=== PATIENT | male | born 1960 | race Caucasian/White ===

== ENCOUNTER 2022-08-24 11:51 | Emergency (ER) | payer OTHER ==
[~2022-08-24] VITALS: Ht 177.8 cm; Wt 91.8 kg
[2022-08-24 12:01] VITALS: BP 127/75
[2022-08-24 13:00] LABS: BASOPHILS # (AUTO) 0.1 X10'3 (0-0.2); BASOPHILS % (AUTO) 0.8 % (0-1); EOSINOPHILS # (AUTO) 0.5 X10'3 (0-0.9); EOSINOPHILS % (AUTO) 3.8 % (0-6); HEMATOCRIT 48.6 % (42.0-52.0); HEMOGLOBIN 15.9 g/dl (14.0-17.9); LYMPHOCYTES % (AUTO) 16.7 % (21-51); MEAN CORPUSCULAR HEMOGLOBIN 30.1 PG (27.0-31.0); MEAN CORPUSCULAR HGB CONC 32.7 g/dL (33.0-36.5); MEAN CORPUSCULAR VOLUME 91.9 FL (78-98); MEAN PLATELET VOLUME 7.9 FL (7.4-10.4); MONOCYTES % (AUTO) 8.6 % (2-12); NEUTROPHILS # (AUTO) 8.6 X10'3 (1.8-7.7); NEUTROPHILS % (AUTO) 70.1 % (42-75); PLATELET COUNT 194 X10'3 (140-440); RED BLOOD COUNT 5.29 X10'6 (4.70-6.10); RED CELL DISTRIBUTION WIDTH 14.6 % (11.5-14.5); WHITE BLOOD COUNT 12.2 X10'3 (4.5-11.0)
[2022-08-24 13:28] LABS: ALANINE AMINOTRANSFERASE 37 U/L (12-78); ALBUMIN 3.3 G/DL (3.4-5.0); ALBUMIN/GLOBULIN RATIO 0.9 (1.1-1.5); ALKALINE PHOSPHATASE 84 IU/L (46-116); ASPARTATE AMINO TRANSFERASE 26 U/L (10-37); BILIRUBIN,TOTAL 0.4 MG/DL (0.1-1.0); BLOOD UREA NITROGEN 24 MG/DL (7-18); BUN/CREATININE RATIO 21.6 (5.4-32.0); CALCIUM 8.7 MG/DL (8.5-10.1); CREATININE 1.11 MG/DL (0.60-1.10); GLUCOSE 102 MG/DL (70-104); POTASSIUM 4.3 MMOL/L (3.5-5.1); SODIUM 138 MMOL/L (135-145); TOTAL CARBON DIOXIDE 25.5 MMOL/L (24-32); TOTAL PROTEIN 6.9 G/DL (6.4-8.2); eGFR 67 ML/MIN
[2022-08-24 13:29] LABS: CLARITY,URINE CLOUDY (Clear); COLOR,URINE AMBER (Yellow); GLUCOSE, URINE NEGATIVE (Neg); KETONES,URINE TRACE mg/dl (Neg); LEUKOCYTE ESTERASE ,URINE NEGATIVE (Neg); NITRITES, URINE POSITIVE (Neg); OCCULT BLOOD,URINE LARGE (Neg); PROTEIN,URINE 100 mg/dl (Neg); UROBILINOGEN,URINE 0.2 E.U/dL (0.2-1.0)
[2022-08-24 13:30] LABS: UA COLLECTION TYPE CLN CATCH MIDSTREAM
[2022-08-24 13:37] LABS: ANION GAP 8 (8-16); CHLORIDE 105 MMOL/L (99-107)
[2022-08-24 13:41] LABS: AMORPHOUS URATES 3+
[2022-08-24 13:42] LABS: BACTERIA,URINE 1+ /HPF (Neg); MUCUS STRANDS MODERATE /LPF (Neg); RBC,URINE TNTC /HPF (0-2); SQUAMOUS EPITHELIAL CELL,UR FEW /LPF (FEW)
== END 2022-08-24 14:24 | disposition home or self-care (01) ==
LOC: ER 11:53
DX: R58 Hemorrhage, not elsewhere classified (principal); D68.9 Coagulation defect, unspecified; R31.0 Gross hematuria; R11.0 Nausea; I48.91 Unspecified atrial fibrillation; E78.00 Pure hypercholesterolemia, unspecified; I10 Essential (primary) hypertension; Z98.890 Other specified postprocedural states; Z72.89 Other problems related to lifestyle; Z88.5 Allergy status to narcotic agent
CPT/HCPCS: 36415; 80053; 81001; 85025; 85610; 87088; 99283

== ENCOUNTER 2025-04-11 10:11 | Inpatient (IN) | payer OTHER ==
[~2025-04-11] VITALS: Ht 177.8 cm; Wt 101.8 kg
[2025-04-11 10:39] LABS: MEAN PLATELET VOLUME 8.1 FL (7.4-10.4); RED CELL DISTRIBUTION WIDTH 14.9 % (11.5-14.5)
--- NOTE | 2025-04-11 10:43 | ELECTROCARDIOGRAPH REPORT ---
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 Cheng Marks Measurements Intervals [place] Rate: 79 P: 0 NV: 0 QRS: 51 QRSD: 98 T: 80 QT: 385 QTc: 442 Interpretive Statements Atrial fibrillation Probable LVH with secondary repol abnrm Electronically Signed On 04-18-2025 18:49:[address] Cheng Marks Please click the below link to view image of tracing.
[2025-04-11 10:50] LABS: CREATININE 1.40 MG/DL (0.60-1.10); TOTAL CARBON DIOXIDE 26.2 MMOL/L (24-32); eCRCL 55 ML/MIN; eGFR 51 ML/MIN
[2025-04-11 10:52] LABS: APTT 25 SECONDS (22-32); INR 1.0 INR
--- NOTE | 2025-04-11 11:12 | RADIOLOGY REPORT ---
CLINICAL INFORMATION: 64 years old, Male; Stroke Alert. TECHNIQUE: Axial imaging was obtained through the brain without contrast. Coronal and sagittal reformatted images were obtained, reviewed, and stored. Images were reviewed in brain and bone windows. All CT scans at this medical facility are performed using dose modulation techniques as appropriate to a performed exam including the following: Automated exposure control was utilized; adjustment of the MA and/or KV according to patient size; and use of iterative reconstruction technique. CTDIvol = 68.96 mGy DLP = 1297.82 mGy-cm COMPARISON: None FINDINGS: There is no acute intracranial hemorrhage. No mass effect or midline shift. There is ventriculomegaly, to a greater extent involving the lateral ventricles, disproportionate to the degree of cerebral volume loss. Possible normal pressure hydrocephalus in the appropriate clinical setting. Basal cisterns are patent. The calvarium is unremarkable. Paranasal sinuses and mastoid air cells are clear. IMPRESSION: 1. No CT evidence of acute intracranial abnormality. 2. Ventriculomegaly, disproportionate to the degree of cerebral volume loss, possible normal pressure hydrocephalus in the appropriate clinical setting. Critical findings Critical Result: Stroke Alert Findings discussed with Dr. Camp, at 04/11/2025 01:09 PM CDT, and acknowledged receipt and understanding of the findings. ..
--- NOTE | 2025-04-11 11:12 | RADIOLOGY REPORT ---
CHEST RADIOGRAPH Indication: Stroke [id number] Technique: Single frontal view of the chest was obtained COMPARISON: None FINDINGS: Lines and Tubes: Median sternotomy Lungs: Clear Pleura: No effusion. No pneumothorax. Cardiomediastinal contours: Cardiac valve replacement Bones: Unremarkable IMPRESSION: No acute disease.
--- NOTE | 2025-04-11 11:56 | Physician Documentation ---
History of Present Illness ~ Chief Complaint: Stroke Alert Stated Complaint: CONFUSION Time Seen by MD: 10:35 Mode of Arrival: POV HPI 64 year old male was watching TV last night and experienced some neurologic symptoms where he was suddenly unable to walk, may have fallen down, and saw visual disturbances on the screen. His symptoms resolved (timeline is unclear, he is a poor historian). He feels fine now, went to work and spoke with his complaint manager, and then presented to our ER. He is ambulatory, denies pain, fevers, N/V/D, shortness of breath, headache, and visual disturbances. Medication Reconciliation Allergies: Coded Allergies: codeine (Verified Allergy, Unknown, 04/11/25) Past Medical History Past Medical History: Atrial Fibrillation, High Cholesterol, Hypertension Past Surgical History: heart valve surgery Alcohol Use: Occasionally Drug Use: none Lives In: Home Occupation: employed Review of Systems All Other Systems at this time: Reviewed and Negative Physical Exam Vital Signs: Temperature: 98.6, Source: Oral, Heart Rate: 95, Respiratory Rate: 16, BP: 131/91, Pulse Oximetry: 98, Weight: 101.800 Oxygen Flow Rate: 0 General Appearance HEENT: PERRL, moist oral mucosa, EOMI Pulmonary: No respiratory distress CTAB Cardiac: RRR, no murmur, rub or gallop MSK: no deformity Skin: w/d/i, no rash Neuro: alert, nonfocal Psych: normal affect Progress Results/Orders Results/Orders Orders - CARMINE CHANG MD Monitor (04/11/25 10:28) 2 Large Bore Ivs (04/11/25 10:28) Chest,Single View (04/11/25 11:00) Accucheck (04/11/25 10:) Ct Stroke Alert (04/11/25:) [place] Prov.Neuro Consult (04/11/25 10:) Page Hospitalist (04/11/25 12:07) Completed Orders - CARMINE CHANG MD Cbc/Diff (04/11/25:) Electrocardiogram (04/11/25:) Chest,Single View (04/11/25 11:00) Ct Stroke Alert (04/11/25:) BMP (04/11/25:) PTT (9/10/25 10:28) Pt Inr (04/11/25 10:28) Urinalysis, Cult If Indicated (04/11/25 11:38) Ethanol (04/11/25 10:32) Vital Signs 04/11/25 04/11/25 04/11/25 10:16 10:20 11:41 Temp 97.4 98.6 Pulse 79 95 Resp 18 16 16 B/P (MAP) 126/82 131/91 (104) Pulse Ox 97 98 O2 Flow Rate 0 Laboratory Tests Test 04/11/25 10:32 04/11/25 12:52 White Blood Count 9.7 Red Blood Count 4.84 Hemoglobin 14.6 Hematocrit 44.4 Mean Corpuscular Volume 91.8 Mean Corpuscular Hemoglobin 30.3 Mean Corpuscular Hemoglobin Concent 33.0 Red Cell Distribution Width 14.9 H Platelet Count 170 Mean Platelet Volume 8.1 Neutrophils (%) (Auto) 66.3 Lymphocytes (%) (Auto) 20.7 L Monocytes (%) (Auto) 8.4 Eosinophils (%) (Auto) 3.6 Basophils (%) (Auto) 1.0 Neutrophils # (Auto) 6.4 Lymphocytes # (Auto) 2.0 Monocytes # (Auto) 0.8 Eosinophils # (Auto) 0.3 Basophils # (Auto) 0.1 CBC Comment Prothrombin Time 10.1 INR International Normalized Ratio 1.0 Activated Partial Thromboplast Time 25 Coagulation Comments Sodium Level 137 Potassium Level 4.6 Chloride Level 106 Carbon Dioxide Level 26.2 Anion Gap 5 L Blood Urea Nitrogen 32 H Creatinine 1.40 H Estimated GFR/1.73 m2 51 BUN/Creatinine Ratio 22.9 H Glucose Level 100 Calcium Level 8.7 Albumin 3.5 Chemistry Comments Ethyl Alcohol Level < 10 Urine Specimen Description Cln catch midstream Urine Color Yellow Urine Clarity Clear Urine pH 5.5 Urine Specific Cleves 1.025 Urine Protein Negative Urine Glucose (UA) Negative Urine Ketones Negative Urine Occult Blood Negative Urine Nitrite Negative Urine Bilirubin Negative Urine Urobilinogen 0.2 Urine Leukocyte Esterase Negative Urine Culture Indicated Not ind Volume Urine Centrifuged 10 ml Urine Comment EKG/XRAY/CT/US/VASC/MRI EKG : Indication: stroke/TIA EKG Rate: 79 EKG: a fib EKG Blocks: none Additional Comment my interpretation: no STEMI, atrial fibrillation, rate of 79/min Chest X-Ray : Interpreted By: self Views: 1 VIEW Indication: weakness Lungs: normal Mediastinum: normal Ribs/Bones: normal Abdomen: normal Impression: no acute disease CT : Interpreted By: self CT: head Impression no mass, shift, or intracranial hemorrhage Medical Decision Making Findings 64 year old male with concern for CVA/TIA given symptoms. However he is asymptomatic today and completely neurologically intact. Workup was entirely negative including CT head, labs. On reevaluation I recommended that the patient be admitted for further workup including MRI, echocardiogram, and inpatient monitoring, but he adamantly refused despite a thorough discussion of the risks of leaving. Return precautions discussed. Differential Dx:Considerations: Include: CVA, DKA, Electrolyte imbalance, Encephalopathy, Hypoglycemia, Mass lesion, Subarachnoid Hemorrhage, TIA Departure Disposition: LEFT AGAINST MEDICAL ADVICE Impression: Primary Impression: Weakness Condition: Stable Discharge Instructions: Stroke Prevention, [id number] Referrals: NO PRIMARY CARE PROVIDER (PCP) Education Educated: Patient, Other Educated regarding: diagnosis, treatment, prognosis, need for follow up Signature Scribe Signature: . Attestation: . CARMINE CHANG MD Apr 11, 2025 11:56
[2025-04-11 13:17] LABS: LEUKOCYTE ESTERASE ,URINE NEGATIVE (Neg); NITRITES, URINE NEGATIVE (Neg); OCCULT BLOOD,URINE NEGATIVE (Neg)
[2025-04-11 13:24] LABS: UA COLLECTION TYPE CLN CATCH MIDSTREAM
[2025-04-11] MEDS ORDERED: magnesium hydroxide 30ml (MOM) UD suspension PO PRN (13:50)
[2025-04-11] MEDS ORDERED: magnesium sulf-water 2g/50mL 50 ML IV PRN (13:50)
[2025-04-11] MEDS ORDERED: potassium Cl 40MEQ/1/2NS 520ml 520 ML IV PRN (13:50)
[2025-04-11] MEDS ORDERED: magnesium sulf-water 4G/100mL 100 ML IV PRN (13:50)
[2025-04-11] MEDS ORDERED: potassium Cl 20 mEq SR tablet PO PRN ×2 (13:50)
[2025-04-11] MEDS ORDERED: magnesium Cl slow-release 64mg tablet PO PRN (13:50)
[2025-04-11] MEDS ORDERED: bisacodyl 10mg suppository rectal RC PRN (13:50)
[2025-04-11] MEDS ORDERED: ondansetron/PF 4mg/2ml inj IV PRN (13:50)
[2025-04-11 14:20] LABS: ETHANOL < 10 MG/DL (<10)
--- NOTE | 2025-04-11 19:10 | CARDIOLOGY REPORT ---
APPROVED REPORT EXAM: Comprehensive 2D, Doppler, and color-flow Echocardiogram. Patient Location: ER3 Heart Rate: 85 bpm Rhythm: ATRIAL FIBRILLATION Indications Arrhythmia ATRIAL FIBRILLATION HYPERTENSION UNK SIZED / MODEL BIOPROSTHETIC MITRALVALVE REPLACEMENT Sorter Packer is Antonio Hawley MD No previous echo 2D Dimensions RVDd 5.6 cm LA Diam 6.5 cm IVSd 1.4 (0.7-1.1cm) LVDd 3.9 cm PWd 1.4 (0.7-1.1cm) IVSs 1.8 (0.8-1.2cm) LVDs 2.8 (2.5-4.0cm) Aortic Root(2D) 4.0 cm PWs 1.8 (0.8-1.2cm) LVOT Diameter 2.44 (1.8-2.4cm) LVEF(%) 56.7 (>50%) Ao Asc Diam. 3.62 cm IVC 15.71 mm FS (%) 29.2 % SV 37.3 ml CO 3.7 L/min Aortic Valve AoV Peak Rosales. 164.1 cm/s AoV VTI 28.0 cm AO Peak GR. 10.8 mmHg AO Mean GR. 6 mmHg LVOT VTI 20.52 cm LVOT Peak Rosales. 111.6 cm/s SHANTEL(VTI)/BSA 3.44 cm2/m2 SHANTEL (VTI) 3.44 cm2 Mitral Valve MV Peak Gr. 26 mmHg MV Mean Gr. 13 mmHg MV VMax 254.4 cm/s MV VMean 166.3 cm/s MVA VTI 1.39 cm2 MV VTI 69.2 cm Tricuspid Valve TR P. Velocity 357 cm/s RAP ESTIMATE 10 mmHg TR Peak Gr. 51 mmHg RVSP 61 mmHg LEFT VENTRICLE LV is normal in size with moderate concentric hypertrophy. Overall systolic function appears normal. LVEF is 65%. RIGHT VENTRICLE RV appears moderately dilated with normal contractility. RVSP is estimated at 61 mmHG. ATRIA Left atrium is severely dilated. AORTIC VALVE Trileaflet AV appears sclerotic without stenosis. No insufficiency. MITRAL VALVE Bioprosthetic MV replacement appears well seated but canted towards the septum. Peak/mean gradient of 26/13 mmHG and a peak velocity of 2.54 m/s. Trace mitral regurgitation. TRICUSPID VALVE The tricuspid valve is normal in structure. Trace tricuspid regurgitation. PULMONIC VALVE The pulmonary valve is normal in structure. Trace pulmonic regurgitation. GREAT VESSELS Aortic root is dilated. The ascending aorta is measured at 3.6 cm. The IVC is normal in size and collapses >50% with inspiration. PERICARDIUM There is no pericardial effusion. Other Information Study Quality: Adequate Conclusion LV is normal in size with moderate concentric hypertrophy. Overall systolic function appears normal. LVEF is 65%. RV appears moderately dilated with normal contractility. RVSP is estimated at 61 mmHG. Left atrium is severely dilated. Trileaflet AV appears sclerotic without stenosis. No insufficiency. Bioprosthetic MV replacement appears well seated but canted towards the septum. Peak/mean gradient of 26/13 mmHG and a peak velocity of 2.54 m/s. Trace mitral regurgitation. The tricuspid valve is normal in structure. Trace tricuspid regurgitation. The pulmonary valve is normal in structure. Trace pulmonic regurgitation. Aortic root is dilated. The ascending aorta is measured at 3.6 cm. There is no pericardial effusion.
[2025-04-11] MEDS: heparin, porcine 5000 units/ml vial SQ SCH (20:00)
[2025-04-11 20:30] VITALS: BP 138/77; PULSE 54; RESP 16; TEMP 97.8; O2SAT 98
--- NOTE | 2025-04-11 20:39 | HISTORY AND PHYSICAL ---
History & Physical Providers to CC ~ History of Present Illness Reason for Admit\Complaint: Stroke-like symptoms History of Present Illness Patient is 64-year-old male who does not have any primary care physician at this point of time but follows with Dr. Annalisa Hawley and see physician optometry assistant in his office. Patient has history of old stroke but he does not have any residual deficit due to his old stroke currently. As per patient he drinks alcohol mixed drink whiskey 16 oz daily with soda, very recently use cannabis also. He denies smoking. Patient is unable to recall very clearly how many medication she takes but he feels he takes one aspirin and blood pressure medication. As per patient he was watching TV around 8:00 p.m. unable to see images in TV very well and then he went to the restroom in unable to walk much, does not feel that he fell down . today he feels that his symptoms are resolved and denied any other concerns today. Patient has chronic atrial fibrillation unable to recall if he is taking any medication for rate control or on any other blood thinner besides aspirin. Patient denies any weakness over his extremity denies any speech abnormality vision abnormality or any other neurological symptoms when I evaluated him. As per ER physician He wanted to leave against medical advice but somehow ready to get admitted for overnight observation for stroke-like symptoms. He clearly mentioned to me that he can not get MRI head done because he feels very claustrophobic and even hesitant to take medications to get MRI head Allergies: Coded Allergies: codeine (Verified Allergy, Unknown, 04/11/25) Past Medical History Past Medical History Atrial Fibrillation, High Cholesterol, Hypertension Past Surgical History Surgical History Comment Mitral heart valve surgery Past Social History Social History Comment As per patient he drinks alcohol mixed drink whiskey 16 oz daily with soda, very recently use cannabis also. He denies smoking. He work in [employer] Review of system as mentioned above in HPI rest of the review of system unremarkable Exam Vitals: Vital Signs Date Time Temp Pulse Resp B/P (MAP) Pulse Ox O2 Delivery O2 Flow Rate FiO2 04/11/25 19:41 97.8 93 18 119/79 (92) 97 0 General: General-patient not in any acute distress, alert awake oriented, age- appropriate, looks comfortable HEENT-atraumatic normocephalic, neck supple without elevated JVD, no thyromegaly or carotid bruit. No lymphadenopathy bilaterally. Eyes-no icterus or pallor seen in eyes Chest-clear to auscultation bilaterally, breathing nonlabored no tachypnea, no wheezing, no crepitation, no crackles. Heart-S1-S2 normal, regular heart rate no murmur Abdomen bowel sounds positive on auscultation, soft nondistended nontender no guarding, no rigidity Skin no active skin rash Neurology-grossly intact, nonfocal alert awake oriented Extremity- no pedal edema able to move all 4 extremities, ambulating. No focal neurological deficit no arm drift no drooping of angle of mouth no weakness over lower extremity no speech abnormality no vision abnormality. Psychiatry - patient is not confused or agitated cooperated during physical examination Diagnostic Data Last Recorded Lab Results: 04/11/25 1032 04/11/25 1032 Diagnostic Data: Laboratory Tests Test 04/11/25 10:32 Prothrombin Time 10.1 SECONDS (9.0-12.0) INR International Normalized Ratio 1.0 INR Activated Partial Thromboplast Time 25 SECONDS (22-32) Coagulation Comments Advance Care Planning Advanced Care plannin - 30 Minutes Additional Plan Patient is 64-year-old male who does not have any primary care physician at this point of time but follows with Dr. Annalisa Hawley and see physician optometry assistant in his office. Patient has history of old stroke but he does not have any residual deficit due to his old stroke currently. Patient is admitted today for stroke- like symptoms, possible TIA or likely due to alcohol use. Further workup ordered include carotid Doppler studies echocardiogram we will continue to monitor neuro check and vitals. Patient is started on alcohol withdrawal protocol due to his current use of alcohol. Patient is strongly advised to stop alcohol and cannabis and risks explained. Detailed counseling done regarding atrial fibrillation in patient is encouraged to talk to his sustainable agriculture specialist regarding rate control medication and anticoagulation.. As per ER physician He wanted to leave against medical advice but somehow ready to get admitted for overnight observation for stroke-like symptoms. He clearly mentioned to me that he can not get MRI head done because he feels very claustrophobic and even hesitant to take medications to get MRI head We will continue to monitor patient's labs and vitals closely . Needs physical therapy evaluation before discharge . Code status discussed with the patient patient wishes full code. Time spent in discussing code status 16 minutes. We will do home medication reconciliation once updated in electronic by nursing staff or pharmacist. Further management depending on response to treatment and results of diagnostic workup. I will continue to follow patient in a.m. Date of Service: Apr 11, 2025 Billing Provider: GISELE CLANCY MD Common Visit Codes: 41279-BEGTRIC INP/OBS CARE (HIGH) Secondary Visit Codes: 90480-ECKOXMGN CARE PLAN 30 MINUTES GISELE CLANCY MD Apr 11, 2025 20:39
[2025-04-11] MEDS ORDERED: ASPI-611 PO (22:22)
--- NOTE | 2025-04-11 23:59 | [facility] CONSULT REPORT ---
[facility] Procedure Note [facility] Procedure Note Consult [facility] Note # Demographics Consult Type: General Neurology Patient Location: Emergency Room First Name: Linda Last Name: Date of : 1960 Age: 64 Gender: Male Facility: [facility] Time of Initial Page (): 04/11/2025 19:35 First Contact with Site (): 04/11/2025 19:35 # HPI History: 64y with hx of HTN who presented after this morning he started having blurry vision then tried to go to his room and had difficulty walking because he was unsteady. Symptoms have resolved, feels back to baseline # Scores Time of exam and NIHSS (): 04/11/2025 20:09 Level of Consciousness 1a: [0] = Alert; keenly responsive LOC Questions 1b: [0] = Answers both questions correctly LOC Commands 1c: [0] = Performs both tasks correctly Best Gaze 2: [0] = Normal Visual 3: [0] = No visual loss Facial Palsy 4: [0] = Normal symmetrical movements Motor Arm Left 5a: [0] = No drift Motor Arm Right 5b: [0] = No drift Motor Leg Left 6a: [0] = No drift Motor Leg Right 6b: [0] = No drift Limb Ataxia 7: [0] = Absent Sensory 8: [0] = Normal Best Language 9: [0] = No aphasia Dysarthria 10: [0] = Normal Extinction and Inattention 11: [0] = No abnormality NIHSS Total: 0 # Data Head CT: - no bleed - per radiologist read # Assessment Impression: - Vertigo Differential Diagnosis: - Ischemic Stroke (Acute) - Transient Ischemic Attack - Vertigo - Stroke Mimic # Plan Blood Pressure Management: - nicardipine - labetalol Target Blood Pressure: - SBP < 220 - DBP < 120 - Normotension Imaging - CTA head and neck - Patient states he will be unable to tolerate MRI due to claustrophobia, if this is the case would recommend repeat CT head about 24 hours from previous Labs: - hemoglobin A1c - lipid panel - TSH Diagnostic Test: - echo without bubble study Therapy/Evaluation: - PT/OT evaluation Medication: - aspirin 81 mg daily - start statin with goal of LDL < 70 DVT Prophylaxis: - SCD - chemical DVT prophylaxis Other: - If patient has any neurological deterioration please call me back immediately - telemetry monitoring - will need event monitor or loop recorder as outpatient if atrial fibrillation not found as inpatient - I have discussed my recommendations with the referring provider # Logistics Attestation of consult completion: The patient is located at: [facility]. Facility staff participated in the visit. I performed this t elemedicine visit from my offsite office utilizing interactive 2 way audio and visual telecommunication technology at the request of the onsite emergency room provider. Consent: Verbal consent was obtained from the patient and/or family for this encounter. Total time spent in telemedicine encounter: I spent 18 minutes reviewing clinical data and/or imaging, obtaining history, examining the patient, communicating with the onsite care team, and in preparation of this report. # Demographics First Name: Linda Last Name: Ish Facility: [facility] Electronically signed at 04/11/2025 20:46 ([place] Time) by Jing Sagastume DO Neuro Consult Order placed for: Yes JING SAGASTUME DO Apr 11, 2025 23:59
[2025-04-12] VITALS: BP 135/82; PULSE 65
[2025-04-12 04:00] VITALS: BP 125/85; PULSE 83
[2025-04-12 05:00] VITALS: BP 125/85; PULSE 83; RESP 18; TEMP 97.2; O2SAT 92
[2025-04-12 07:59] LABS: MEAN PLATELET VOLUME 8.1 FL (7.4-10.4); RED CELL DISTRIBUTION WIDTH 14.9 % (11.5-14.5)
[2025-04-12 08:21] LABS: CHOL/HDL RATIO 4.0 (0.00-4.99); CREATININE 1.20 MG/DL (0.60-1.10); LDL CHOLESTEROL 122 MG/DL (50-100); TOTAL CARBON DIOXIDE 26.2 MMOL/L (24-32); eCRCL 64 ML/MIN; eGFR 61 ML/MIN
[2025-04-12] MEDS: aspirin 81mg, enteric-coated 1 TAB TABLET.DR PO SCH (09:04)
[2025-04-12] MEDS: multivitamins, therapeutics tablet PO SCH (09:04)
[2025-04-12 10:00] VITALS: BP 115/77; PULSE 54; RESP 16; TEMP 98.5; O2SAT 98
[2025-04-12] MEDS ORDERED: CARV3.12 PO (10:43)
--- NOTE | 2025-04-12 12:29 | RADIOLOGY REPORT ---
CLINICAL INFORMATION: 64 years old, Male; STROKE LIKE SYMPTOMS. TECHNIQUE: Axial imaging was obtained through the brain without contrast. Coronal and sagittal reformatted images were obtained, reviewed, and stored. Images were reviewed in brain and bone windows. All CT scans at this medical facility are performed using dose modulation techniques as appropriate to a performed exam including the following: Automated exposure control was utilized; adjustment of the MA and/or KV according to patient size; and use of iterative reconstruction technique. CTDIvol = 70.09 mGy DLP = 1284.03 mGy-cm COMPARISON: CT CT STROKE ALERT on DOS: 04/11/25 FINDINGS: There is no acute intracranial hemorrhage. No mass effect or midline shift. Unchanged ventriculomegaly. Basal cisterns are patent. Probable physiologic calcification or vascular calcification along the falx cerebri. The calvarium is unremarkable. Paranasal sinuses and mastoid air cells are clear. IMPRESSION: 1. No CT evidence of acute intracranial abnormality. If clinically indicated, MRI could be considered to further evaluate. 2. Unchanged ventriculomegaly. Normal pressure hydrocephalus can not be excluded in the appropriate clinical setting. Correlate with clinical findings.
--- NOTE | 2025-04-12 12:30 | VASCULAR REPORT ---
[facility] Vascular Department [facility] [address] [place] [address] [email or web address] VASCULAR Name : KERI CALIX Date : 04/12/2025 Accession# : [id number] Birthdate : 1960 Sex : M Buzzle Buffer : Charles Monge RVT Age : [address]Y [address] : ASTON JAQUEZ Preliminary Report The above named patient was referred for a NON-INVASIVE CEREBROVASCULAR EVALUATION. The evaluation includes grayscale imaging, color flow Doppler and spectral analysis of the bilateral carotid and vertebral arteries. Patient IN-PATIENT L tatihnBilateral Indications Confusion Doppler Spectral Velocity Analysis Right Left pCCA 114/22 cm/s pCCA 103/23 cm/s dCCA 52/18 cm/s dCCA 48/19 cm/s ECA 74/ cm/s ECA 81/ cm/s pICA 40/15 cm/s pICA 57/18 cm/s Alejandro 48/19 cm/s Alejandro 60/15 cm/s dICA 79/25 cm/s dICA 75/29 cm/s Vert 36/13 cm/s Vert. 51/18 cm/s Subcl. 171/ cm/s Subcl. 128/ cm/s ICA/CCA 1.52 ICA/CCA 1.56 Temporal Artery Analysis Right Left Distal 56.00/cm/s Distal IMPRESSION: No sonographic evidence of stenosis or occlusion in bilateral carotid arteries. Bilateral common carotid arteries showed less than 50% stenosis. Bilateral external carotid arteries showed less than 50% stenosis. Bilateral internal carotid arteries showed less than 50% stenosis. Antegrade flow noted in bilateral vertebral arteries. Multiphasic flow noted in bilateral subclavian arteries.
--- NOTE | 2025-04-12 20:09 | DISCHARGE SUMMARY ---
Discharge Summary Providers to ~ Discharge Summary Admission Diagnosis: stroke like symptoms , Afib rate controlled Hospital Course DATE OF ADMISSION: April 11, 2025 DATE OF DISCHARGE:April 12, 2025 CBC testing done on April 12, 2025 WBC 8.2 hemoglobin 14.9 hematocrit 44.6 platelet count 150. Serum chemistry done on April 12, 2020 fives creatinine 1.20 GFR 61 hemoglobin A1c 6.3 normal liver enzymes lipid panel showing triglyceride 105 total cholesterol 203 LDL 122. Alcohol level less than 10, urine testing negative VL CAROTID-IMPRESSION: No sonographic evidence of stenosis or occlusion in bilateral carotid arteries. Bilateral common carotid arteries showed less than 50% stenosis. Bilateral external carotid arteries showed less than 50% stenosis. Bilateral internal carotid arteries showed less than 50% stenosis. Antegrade flow noted in bilateral vertebral arteries. Multiphasic flow noted in bilateral subclavian arteries. CT HEAD-IMPRESSION: 1. No CT evidence of acute intracranial abnormality. If clinically indicated, MRI could be considered to further evaluate. 2. Unchanged ventriculomegaly. Normal pressure hydrocephalus can not be excluded in the appropriate clinical setting. Correlate with clinical findings. ECHOCARDIOGRAMConclusion LV is normal in size with moderate concentric hypertrophy. Overall systolic function appears normal. LVEF is 65%. RV appears moderately dilated with normal contractility. RVSP is estimated at 61 mmHG. Left atrium is severely dilated. Trileaflet AV appears sclerotic without stenosis. No insufficiency. Bioprosthetic MV replacement appears well seated but canted towards the septum. Peak/mean gradient of 26/13 mmHG and a peak velocity of 2.54 m/s. Trace mitral regurgitation. The tricuspid valve is normal in structure. Trace tricuspid regurgitation. The pulmonary valve is normal in structure. Trace pulmonic regurgitation. Aortic root is dilated. The ascending aorta is measured at 3.6 cm. There is no pericardial effusion. CHEST,SINGLE VIEWIMPRESSION: No acute disease. CT STROKE ALERT-IMPRESSION: 1. No CT evidence of acute intracranial abnormality. 2. Ventriculomegaly, disproportionate to the degree of cerebral volume loss, possible normal pressure hydrocephalus in the appropriate clinical setting. Discharge Diagnosis\Comment: Old CVA, alcohol abuse, atrial fibrillation rate controlled Operations\Procedures: None Consultants: Dr. Jing Roth Complications: None Condition on DC: Stable New Medications: Carvedilol (Coreg) 3.125 Mg Tablet 1 TAB PO Q12H for 30 Days, #60 TAB Continued Medications: Aspirin (Aspir 81) 81 Mg Tablet. 1 TAB PO DAILY, TAB Discharge Summary: Patient is 64-year-old male who does not have any primary care physician at this point of time but follows with Dr. Annalisa Hawley and see physician assistant professor of life sciences in his office. Patient has history of old stroke but he does not have any residual deficit due to his old stroke currently. As per patient he drinks alcohol mixed drink whiskey 16 oz daily with soda, very recently use cannabis also. He denies smoking. Patient is unable to recall very clearly how many medication she takes but he feels he takes one aspirin and blood pressure medication. As per patient he was watching TV around 8:00 p.m. unable to see images in TV very well and then he went to the restroom in unable to walk much, does not feel that he fell down . today he feels that his symptoms are resolved and denied any other concerns today. Patient has chronic atrial fibrillation unable to recall if he is taking any medication for rate control or on any other blood thinner besides aspirin. Patient denies any weakness over his extremity denies any speech abnormality vision abnormality or any other neurological symptoms when I evaluated him. As per ER physician He wanted to leave against medical advice but somehow ready to get admitted for overnight observation for stroke-like symptoms. He clearly mentioned to me that he can not get MRI head done because he feels very claustrophobic and even hesitant to take medications to get MRI head Patient is admitted today for stroke-like symptoms, possible TIA or likely due to alcohol use. Further workup ordered include carotid Doppler studies echocardiogram in results of diagnostic workup mentioned above. we continued to monitor neuro check and vitals. Patient is started on alcohol withdrawal protocol due to his current use of alcohol. Patient is strongly advised to stop alcohol and cannabis and risks explained. Detailed counseling done regarding atrial fibrillation in patient is encouraged to talk to his technical sales support specialist regarding rate control medication and anticoagulation.. Repeat CT head done which was unremarkable for any acute CVA Patient is feeling better he has been afebrile and getting discharged home in stable condition. Patient is seen and examined on the day of discharge. All labs, diagnostic workup and discharge plan discussed with patient and family mem bers in detail before her discharge. All questions and queries answered to the best of my professional medical knowledge. I heard patient's concerns and address appropriately. Patient was cleared by Physical therapy team for home discharge . manager business management involved in patient's discharge plan. Discharge instructions provided to the patient. PLEASE FOLLOW-UP WITH DR. Annalisa HAWLEY AFTER HOSPITAL DISCHARGE AND DISCUSS TREATMENT AND ANTICOAGULATION WITH ELEVATOR SUPERVISOR. STRONGLY ADVISED TO TAPER ALCOHOL AND RISKS EXPLAINED. ACTIVITY TOLERATED. General-patient not in any acute distress, alert awake oriented, age- appropriate, looks comfortable HEENT-atraumatic normocephalic, neck supple without elevated JVD, no thyromegaly or carotid bruit. No lymphadenopathy bilaterally. Eyes-no icterus or pallor seen in eyes Chest-clear to auscultation bilaterally, breathing nonlabored no tachypnea, no wheezing, no crepitation, no crackles. Heart-S1-S2 normal, regular heart rate no murmur Abdomen bowel sounds positive on auscultation, soft nondistended nontender no guarding, no rigidity Skin no active skin rash Neurology-grossly intact, nonfocal alert awake oriented Extremity- no pedal edema able to move all 4 extremities, ambulating. No focal neurological deficit no arm drift no drooping of angle of mouth no weakness over lower extremity no speech abnormality no vision abnormality. Psychiatry - patient is not confused or agitated cooperated during physical examination *Problems/Diagnosis: (1) Weakness Total Time Spent on D/C: > 30 Minutes Date of Service: Apr 12, 2025 Billing Provider: GISELE CLANCY MD Common Visit Codes: 18208-JDP/OBS DISCH DAY >30min GISELE CLANCY MD Apr 12, 2025 20:03
== END 2025-04-12 15:50 | disposition home or self-care (01) | DRG 948 ==
LOC: ER 10:12 → ED HOLD 13:02 → ORTHO 4S 20:30
PROVIDERS: ADMIT Internal Medicine; ATTEND Internal Medicine
DX: R53.1 Weakness (principal); I48.20 Chronic atrial fibrillation, unspecified; I10 Essential (primary) hypertension; E78.00 Pure hypercholesterolemia, unspecified; Z86.73 Personal history of transient ischemic attack (TIA), and cerebral infarction without residual deficits; Z88.5 Allergy status to narcotic agent
CPT/HCPCS: 36415; 70450; 71045; 80048; 80053; 80061; 80320; 81003; 83036; 85025; 85610; 85730; 87081; 92508; 92616; 93005; 93306; 93880; 97116; 97161; 97530; 99285; G0378; J1644